=== PATIENT | female | born 1955 | race Caucasian/White ===

== ENCOUNTER 2017-07-18 18:04 | Emergency (ER) | payer OTHER ==
[~2017-07-18] VITALS: Ht 165.1 cm; Wt 119.8 kg
[~2017-07-18 18:04] MED LIST: ALPR1 PO; ASPI325EC; ASPI81CH PO; Advil200 M1 PO; Augmentin 875-1 EACH PO; Bystolic2.5 MG PO; CALCA400CH PO; CHOL10002 PO; COLON HEALTH PROBIOT PO; Colace100 MG PO; DOC250 PO; FLUO10; GLUC500 PO; HYDMOR2 PO; Hair, Skin & N1 EACH PO; Hydrocodone-Ap1 EA23 PO; IBUP800 PO; LEVSOD125 PO; LISI20 PO; METO25ER PO; MULT50FEL PO; Multivitamin W1 EAC5 PO; NEBI5 PO; NITR.4SL SL; NITR.6SL SL; Norco 5-325 Ta1 EACH PO; OSTEO BI-FLEX1 EAC2 PO; OSTEO BI-FLEX1 EAC3; OXYACE5T; Omeprazole20 M1 PO; PROM25 PO; PSEU120ER PO; Prilosec Otc20 MG PO; Prilosec20 MG PO; Prozac20 MG PO; SIMV10 PO; TELM40/12.; ZANAX
[2017-07-18] MEDS ORDERED: Toprol Xl25 MG (18:31)
[2017-07-18] MEDS ORDERED: ATOR80 (18:31)
[2017-07-18 19:04] LABS: Source, Urine Clean Catch
[2017-07-18 19:05] LABS: BASOPHILS ABSOLUTE AUTO 0.07 K/mm3 (0.00-0.23); BASOPHILS PERCENT AUTO 1 % (0-2); EOSINOPHILS ABSOLUTE AUTO 0.38 K/mm3 (0.00-0.68); EOSINOPHILS PERCENT AUTO 4 % (0-6); Hemoglobin 12.8 g/dL (11.5-16.0); IMMATURE GRAN ABSOLUTE AUTO 0.01 K/mm3 (0.00-0.10); IMMATURE GRAN PERCENT AUTO 0 % (0-1); LYMPHOCYTES ABSOLUTE AUTO 2.56 K/mm3 (0.84-5.20); LYMPHOCYTES PERCENT AUTO 26 % (21-46); MONOCYTES PERCENT AUTO 6 % (4-13); Mean Corpuscular HGB 29.8 pg (26.0-34.0); Mean Corpuscular HGB Conc 32.8 g/dL (31.5-36.5); Mean Corpuscular Volume 91 fL (80-100); NEUTROPHILS ABSOLUTE AUTO 6.15 K/mm3 (1.96-9.15); NEUTROPHILS PERCENT AUTO 63 % (41-73); Platelet Count 118 K/mm3 (150-400); RDW Coefficient Variation 13.5 % (11.7-14.2); Red Blood Cell Count 4.29 M/mm3 (3.80-5.20); White Blood Cell Count 9.77 K/mm3 (4.00-11.30)
[2017-07-18 19:07] LABS: Appearance, Urine Clear (Clear); Bilirubin, Urine Neg (Neg); Blood, Urine Neg (Neg); Color, Urine Yellow (P-Yellow); Glucose Qualitative, Urine Neg (Neg); Ketones, Urine 3+ (Neg); Leukocyte Esterase, Urine 1+ (Neg); Nitrite, Urine Neg (Neg); Protein, Urine Neg (Neg); Urobilinogen, Urine NORM (Normal)
[2017-07-18 19:26] LABS: Alanine Aminotransfer (ALT/SGP 34 U/L (12-78); Albumin, Blood 3.8 g/dL (3.4-5.0); Albumin/Globulin Ratio 1.2 (0.8-1.8); Alk Phos 121 U/L (50-136); Anion Gap 9 mmol/L (6-16); Aspartate Aminotrans (AST/SGOT 29 U/L (12-37); Bilirubin, Total 0.4 mg/dL (0.1-1.0); Blood Urea Nitrogen 23 mg/dL (8-24); Bun/Creatinine Ratio 30.4 (12.0-20.0); CO2, Blood 23 mmol/L (21-32); Chloride, Blood 106 mmol/L (98-108); Creatinine, Blood 0.76 mg/dL (0.40-1.00); Globulin, Blood 3.1 g/dL (2.2-4.0); Glomerular Filtration Rate >60 (60-); Glucose, Blood 83 mg/dL (70-99); Potassium, Blood 3.8 mmol/L (3.5-5.5); Sodium, Blood 138 mmol/L (136-145); Total Protein, Blood 6.9 g/dL (6.4-8.2)
[2017-07-18 19:30] LABS: Bacteria Few /hpf; Red Blood Cells, Urine 0-2 /hpf (0-2); Squamous Epithelial Cells Few /hpf (Few)
[2017-07-18] MEDS ORDERED: Norco 5-325 Ta1 EACH PO (19:41)
== END 2017-07-18 19:50 | disposition home or self-care (01) ==
LOC: ER 18:04
PROVIDERS: Emergency Medicine
DX: K80.50 Calculus of bile duct without cholangitis or cholecystitis without obstruction (principal); I25.10 Atherosclerotic heart disease of native coronary artery without angina pectoris; I10 Essential (primary) hypertension; K21.9 Gastro-esophageal reflux disease without esophagitis; Z87.891 Personal history of nicotine dependence; Z79.899 Other long term (current) drug therapy; Z79.82 Long term (current) use of aspirin
CPT/HCPCS: 36415; 76705; 80053; 81001; 83690; 85025; 87086; 96374; 96375; 99284; J1885; J2405; J3010

== ENCOUNTER 2017-07-21 09:59 | Day surgery (SDC) | payer OTHER ==
[~2017-07-21] VITALS: Ht 165.1 cm; Wt 117.6 kg
[~2017-07-21 09:59] MED LIST changes: +ATOR80; +Toprol Xl25 MG
[2017-07-21] MEDS ORDERED: Nitrostat0.4 MG (11:00)
== END 2017-07-21 16:15 | disposition home or self-care (01) ==
LOC: ORSCSDS 09:59
PROVIDERS: Internal Medicine Gastroenterology
PROC: 0D758ZZ Dilation of Esophagus, Via Natural or Artificial Opening Endoscopic (ICD-10-PCS; principal; 2017-07-21 11:30)
PROC: 0DB58ZX Excision of Esophagus, Via Natural or Artificial Opening Endoscopic, Diagnostic (ICD-10-PCS; principal; 2017-07-21 11:30)
DX: R13.10 Dysphagia, unspecified (principal); K44.9 Diaphragmatic hernia without obstruction or gangrene; K29.80 Duodenitis without bleeding; K20.9 Esophagitis, unspecified; R10.11 Right upper quadrant pain; Z87.891 Personal history of nicotine dependence; E66.9 Obesity, unspecified; Z68.41 Body mass index [BMI] 40.0-44.9, adult; Z79.82 Long term (current) use of aspirin; Z79.899 Other long term (current) drug therapy
CPT/HCPCS: 87081; 88305; J7120

== ENCOUNTER 2017-08-06 08:12 | Day surgery (SDC) | payer OTHER ==
[~2017-08-06] VITALS: Ht 165.1 cm; Wt 116.6 kg
[~2017-08-06 08:12] MED LIST changes: +ACET325 PO; +ALPR.25 PO; -ATOR80; +ATOR80 PO; +GABA300 PO; +Milk Of Ma400 MG/5 M PO; +Nitrostat0.4 MG PO; +OMEPRAZOLE MAGN20 MG PO; -Toprol Xl25 MG; +Toprol Xl25 MG PO
== END 2017-08-06 12:45 | disposition home or self-care (01) ==
LOC: ORSCMMR 08:12 → ORD 09:45 → ORSCMMR 09:45
PROVIDERS: Surgery
PROC: 0FT44ZZ Resection of Gallbladder, Percutaneous Endoscopic Approach (ICD-10-PCS; principal; 2017-08-06 09:45)
DX: K80.11 Calculus of gallbladder with chronic cholecystitis with obstruction (principal); I10 Essential (primary) hypertension; I25.10 Atherosclerotic heart disease of native coronary artery without angina pectoris; I25.2 Old myocardial infarction; E03.9 Hypothyroidism, unspecified; E66.01 Morbid (severe) obesity due to excess calories; Z68.41 Body mass index [BMI] 40.0-44.9, adult; I25.5 Ischemic cardiomyopathy; K21.9 Gastro-esophageal reflux disease without esophagitis; Z79.82 Long term (current) use of aspirin; Z79.899 Other long term (current) drug therapy
CPT/HCPCS: 88304; J0690; J1100; J1885; J2250; J2405; J2710; J3010; J7030; J7120

== ENCOUNTER → 2017-08-27 | Outpatient (CLI) | payer OTHER | LOC: LAB SHORT 15:38 → LAB 15:38 | PROVIDERS: Obstetrics & Gynecology Gynecology | DX: Z12.72 Encounter for screening for malignant neoplasm of vagina (principal) | CPT/HCPCS: 87624; G0123 ==

== ENCOUNTER 2018-02-22 18:11 | Emergency (ER) | payer OTHER ==
[~2018-02-22] VITALS: Ht 165.1 cm; Wt 105.7 kg
[2018-02-22] MEDS ORDERED: CEPH500 PO (19:22)
== END 2018-02-22 19:30 | disposition home or self-care (01) ==
LOC: ER 18:11
DX: T81.40XA Infection following a procedure, unspecified, initial encounter (principal); L03.116 Cellulitis of left lower limb; Z88.2 Allergy status to sulfonamides; Z79.899 Other long term (current) drug therapy; Z79.82 Long term (current) use of aspirin; Z86.73 Personal history of transient ischemic attack (TIA), and cerebral infarction without residual deficits; Z87.891 Personal history of nicotine dependence
CPT/HCPCS: 99283

== ENCOUNTER → 2018-05-27 | Outpatient (CLI) | payer OTHER ==
[~2018-05-27] MED LIST changes: +CEPH500 PO
== END | disposition home or self-care (01) ==
LOC: LAB SHORT 10:07 → LAB 10:07
DX: L08.0 Pyoderma (principal)
CPT/HCPCS: 87070; 87205

== ENCOUNTER → 2018-07-16 | Outpatient (CLI) | payer OTHER | END | disposition home or self-care (01) | LOC: LAB 16:08 → LAB SHORT 16:08 | DX: L08.0 Pyoderma (principal) | CPT/HCPCS: 87070; 87205 ==

== ENCOUNTER 2018-09-12 14:46 | Emergency (ER) | payer OTHER ==
[~2018-09-12] VITALS: Ht 165.1 cm; Wt 104.3 kg
[2018-09-12] MEDS ORDERED: Diflucan100 MG PO (15:02)
== END 2018-09-12 15:08 | disposition home or self-care (01) ==
LOC: ER 14:46
DX: B37.3 Candidiasis of vulva and vagina (principal); L73.1 Pseudofolliculitis barbae
CPT/HCPCS: 99283

== ENCOUNTER → 2018-11-04 | Outpatient (CLI) | payer OTHER ==
[~2018-11-04] MED LIST changes: +Diflucan100 MG PO
[2018-11-06 16:06] LABS: HPV 16 Negative (Negative); HPV 18 Negative (Negative); HPV OTHER HR TYPES Negative (Negative)
== END | disposition home or self-care (01) ==
LOC: LAB SHORT 18:10 → LAB 18:10
PROVIDERS: Obstetrics & Gynecology Gynecology
DX: Z12.72 Encounter for screening for malignant neoplasm of vagina (principal); Z86.14 Personal history of Methicillin resistant Staphylococcus aureus infection
CPT/HCPCS: 87081; 87624; G0123

== ENCOUNTER → 2018-11-11 | Outpatient (CLI) | payer OTHER | END | disposition home or self-care (01) | LOC: LAB SHORT 15:24 → LAB 15:24 | DX: Z01.411 Encounter for gynecological examination (general) (routine) with abnormal findings (principal); Z86.14 Personal history of Methicillin resistant Staphylococcus aureus infection | CPT/HCPCS: 87081 ==

== ENCOUNTER 2019-08-20 13:02 | Day surgery (SDC) | payer OTHER ==
[~2019-08-20] VITALS: Ht 165.1 cm; Wt 117.8 kg
== END 2019-08-20 15:01 | disposition home or self-care (01) ==
LOC: ORSCSDS 13:02
PROVIDERS: Internal Medicine Gastroenterology
PROC: 0D758ZZ Dilation of Esophagus, Via Natural or Artificial Opening Endoscopic (ICD-10-PCS; principal; 2019-08-20 14:15)
PROC: 0DJ08ZZ Inspection of Upper Intestinal Tract, Via Natural or Artificial Opening Endoscopic (ICD-10-PCS; principal; 2019-08-20 14:15)
DX: R13.14 Dysphagia, pharyngoesophageal phase (principal); K44.9 Diaphragmatic hernia without obstruction or gangrene; K22.2 Esophageal obstruction; F32.9 Major depressive disorder, single episode, unspecified; E66.9 Obesity, unspecified; I10 Essential (primary) hypertension; Z68.41 Body mass index [BMI] 40.0-44.9, adult; Z87.891 Personal history of nicotine dependence; Z79.82 Long term (current) use of aspirin; Z79.899 Other long term (current) drug therapy
CPT/HCPCS: J2704; J7120

== ENCOUNTER 2019-12-31 09:26 | Emergency (ER) | payer OTHER ==
[~2019-12-31] VITALS: Ht 165.1 cm; Wt 120.2 kg
[~2019-12-31 09:26] MED LIST changes: +PREG150 PO
[2019-12-31] MEDS ORDERED: METOPROLOL SUCC25 MG PO (09:47)
[2019-12-31] MEDS ORDERED: Lisinopril-Hct1 EAC4 PO (09:47)
[2019-12-31 09:54] LABS: BASOPHILS ABSOLUTE AUTO 0.05 K/mm3 (0.00-0.23); BASOPHILS PERCENT AUTO 1 % (0-2); EOSINOPHILS ABSOLUTE AUTO 0.45 K/mm3 (0.00-0.68); EOSINOPHILS PERCENT AUTO 7 % (0-6); Hematocrit 38.2 % (33.0-51.0); IMMATURE GRAN ABSOLUTE AUTO 0.02 K/mm3 (0.00-0.10); IMMATURE GRAN PERCENT AUTO 0 % (0-1); LYMPHOCYTES ABSOLUTE AUTO 1.82 K/mm3 (0.84-5.20); LYMPHOCYTES PERCENT AUTO 29 % (21-46); MONOCYTES ABSOLUTE AUTO 0.43 K/mm3 (0.16-1.47); MONOCYTES PERCENT AUTO 7 % (4-13); Mean Corpuscular HGB 29.1 pg (26.0-34.0); Mean Corpuscular HGB Conc 31.4 g/dL (31.5-36.5); Mean Corpuscular Volume 93 fL (80-100); Mean Platelet Volume 11.7 fL (9.1-12.4); NEUTROPHILS ABSOLUTE AUTO 3.57 K/mm3 (1.96-9.15); NEUTROPHILS PERCENT AUTO 56 % (41-73); Platelet Count 152 K/mm3 (150-400); RDW Standard Deviation 47.8 fL (35.1-46.3); Red Blood Cell Count 4.12 M/mm3 (3.80-5.20); White Blood Cell Count 6.34 K/mm3 (4.00-11.30)
[2019-12-31 10:11] LABS: Alanine Aminotransfer (ALT/SGP 27 U/L (12-78); Albumin, Blood 3.1 g/dL (3.4-5.0); Alk Phos 126 U/L (50-136); Anion Gap 3 mmol/L (6-16); Aspartate Aminotrans (AST/SGOT 27 U/L (12-37); Bilirubin, Total 0.6 mg/dL (0.1-1.0); Blood Urea Nitrogen 15 mg/dL (8-24); Bun/Creatinine Ratio 19.6 (12.0-20.0); CO2, Blood 31 mmol/L (21-32); Calcium, Blood 8.8 mg/dL (8.5-10.1); Chloride, Blood 108 mmol/L (98-108); Creatinine, Blood 0.77 mg/dL (0.40-1.00); Globulin, Blood 3.1 g/dL (2.2-4.0); Glomerular Filtration Rate >60 (60-); Glucose, Blood 85 mg/dL (70-99); Potassium, Blood 4.1 mmol/L (3.5-5.5); Sodium, Blood 142 mmol/L (136-145); Total Protein, Blood 6.2 g/dL (6.4-8.2); Troponin I <0.015 ng/mL (0.000-0.040)
== END 2019-12-31 11:27 | disposition home or self-care (01) ==
LOC: ER 09:26
PROVIDERS: Emergency Medicine
DX: R07.9 Chest pain, unspecified (principal); R51.9 Headache, unspecified; I10 Essential (primary) hypertension; I25.10 Atherosclerotic heart disease of native coronary artery without angina pectoris; K21.9 Gastro-esophageal reflux disease without esophagitis; I25.810 Atherosclerosis of coronary artery bypass graft(s) without angina pectoris; Z79.82 Long term (current) use of aspirin; Z79.899 Other long term (current) drug therapy
CPT/HCPCS: 36415; 71046; 80053; 84484; 85025; 93005; 93010; 99285-25

== ENCOUNTER 2021-08-27 16:08 | Emergency (ER) | payer OTHER ==
[~2021-08-27] VITALS: Ht 165.1 cm; Wt 131.5 kg
[~2021-08-27 16:08] MED LIST changes: +Lisinopril-Hct1 EAC4 PO; +METOPROLOL SUCC25 MG PO
[2021-08-27 17:07] LABS: BASOPHILS ABSOLUTE AUTO 0.04 K/mm3 (0.00-0.23); BASOPHILS PERCENT AUTO 1 % (0-2); EOSINOPHILS ABSOLUTE AUTO 0.17 K/mm3 (0.00-0.68); EOSINOPHILS PERCENT AUTO 3 % (0-6); Hematocrit 41.3 % (33.0-51.0); Hemoglobin 13.7 g/dL (11.5-16.0); IMMATURE GRAN ABSOLUTE AUTO 0.02 K/mm3 (0.00-0.10); IMMATURE GRAN PERCENT AUTO 0 % (0-1); LYMPHOCYTES ABSOLUTE AUTO 1.13 K/mm3 (0.84-5.20); LYMPHOCYTES PERCENT AUTO 19 % (21-46); MONOCYTES ABSOLUTE AUTO 0.37 K/mm3 (0.16-1.47); MONOCYTES PERCENT AUTO 6 % (4-13); Mean Corpuscular HGB Conc 33.2 g/dL (31.5-36.5); Mean Corpuscular Volume 91 fL (80-100); Mean Platelet Volume 10.5 fL (9.1-12.4); NEUTROPHILS ABSOLUTE AUTO 4.12 K/mm3 (1.96-9.15); NEUTROPHILS PERCENT AUTO 71 % (41-73); Platelet Count 128 K/mm3 (150-400); RDW Coefficient Variation 14.6 % (11.7-14.2); RDW Standard Deviation 49.1 fL (35.1-46.3); Red Blood Cell Count 4.56 M/mm3 (3.80-5.20); White Blood Cell Count 5.85 K/mm3 (4.00-11.30)
[2021-08-27 17:24] LABS: Albumin, Blood 3.5 g/dL (3.4-5.0); Albumin/Globulin Ratio 0.9 (0.8-1.8); Bilirubin, Total 0.4 mg/dL (0.1-1.0); Bun/Creatinine Ratio 17.9 (12.0-20.0); Calcium, Blood 9.2 mg/dL (8.5-10.1); Creatinine, Blood 0.67 mg/dL (0.40-1.00); Globulin, Blood 3.7 g/dL (2.2-4.0); Potassium, Blood 3.8 mmol/L (3.5-5.5); Total Protein, Blood 7.2 g/dL (6.4-8.2)
== END 2021-08-27 20:25 | disposition home or self-care (01) ==
LOC: ER 16:08
PROVIDERS: Physician Assistant
DX: J06.9 Acute upper respiratory infection, unspecified (principal); R06.2 Wheezing; I25.10 Atherosclerotic heart disease of native coronary artery without angina pectoris; I10 Essential (primary) hypertension; K21.9 Gastro-esophageal reflux disease without esophagitis; Z87.891 Personal history of nicotine dependence; Z88.2 Allergy status to sulfonamides; Z79.899 Other long term (current) drug therapy
CPT/HCPCS: 71046; 80053; 85025; A9270

== ENCOUNTER 2021-09-29 11:48 | Emergency (ER) | payer OTHER ==
[~2021-09-29] VITALS: Ht 170.2 cm; Wt 136.1 kg
[2021-09-29] MEDS ORDERED: HYDR1TAB94 PO (15:20)
== END 2021-09-29 16:10 | disposition home or self-care (01) ==
LOC: ER 11:48
DX: M25.512 Pain in left shoulder (principal); M54.2 Cervicalgia; M54.50 Low back pain, unspecified; R07.9 Chest pain, unspecified; R51.9 Headache, unspecified; W01.0XXA Fall on same level from slipping, tripping and stumbling without subsequent striking against object, initial encounter; I10 Essential (primary) hypertension; I25.10 Atherosclerotic heart disease of native coronary artery without angina pectoris; K21.9 Gastro-esophageal reflux disease without esophagitis; Z79.899 Other long term (current) drug therapy; Z88.2 Allergy status to sulfonamides
CPT/HCPCS: 70450; 71046; 72125; 72131; 73030; 93005; 93010; A9270; J3010

== ENCOUNTER → 2022-04-05 | Outpatient (CLI) | payer OTHER ==
[~2022-04-05] MED LIST changes: +HYDR1TAB94 PO
== END | disposition home or self-care (01) ==
LOC: LAB SHORT 13:08 → LAB 13:08
DX: R30.0 Dysuria (principal)
CPT/HCPCS: 87086

== ENCOUNTER → 2022-07-16 | Outpatient (CLI) | payer OTHER ==
[2022-07-16 19:47] LABS: BASOPHILS ABSOLUTE AUTO 0.06 K/mm3 (0.00-0.23); BASOPHILS PERCENT AUTO 1 % (0-2); EOSINOPHILS ABSOLUTE AUTO 0.44 K/mm3 (0.00-0.68); EOSINOPHILS PERCENT AUTO 6 % (0-6); Hematocrit 36.4 % (33.0-51.0); Hemoglobin 11.6 g/dL (11.5-16.0); IMMATURE GRAN ABSOLUTE AUTO 0.01 K/mm3 (0.00-0.10); IMMATURE GRAN PERCENT AUTO 0 % (0-1); LYMPHOCYTES ABSOLUTE AUTO 2.52 K/mm3 (0.84-5.20); LYMPHOCYTES PERCENT AUTO 35 % (21-46); MONOCYTES ABSOLUTE AUTO 0.48 K/mm3 (0.16-1.47); MONOCYTES PERCENT AUTO 7 % (4-13); Mean Corpuscular HGB 29.5 pg (26.0-34.0); Mean Corpuscular HGB Conc 31.9 g/dL (31.5-36.5); Mean Corpuscular Volume 93 fL (80-100); Mean Platelet Volume 11.2 fL (9.1-12.4); NEUTROPHILS PERCENT AUTO 51 % (41-73); Platelet Count 176 K/mm3 (150-400); RDW Coefficient Variation 14.6 % (11.7-14.2); RDW Standard Deviation 49.9 fL (35.1-46.3); Red Blood Cell Count 3.93 M/mm3 (3.80-5.20); White Blood Cell Count 7.11 K/mm3 (4.00-11.30)
[2022-07-16 20:14] LABS: Albumin, Blood 3.6 g/dL (3.4-5.0); Albumin/Globulin Ratio 1.2 (0.8-1.8); Bilirubin, Total 0.4 mg/dL (0.1-1.0); Creatinine, Blood 0.77 mg/dL (0.40-1.00); Free Thyroxine 0.92 ng/dL (0.70-1.60); Globulin, Blood 2.9 g/dL (2.2-4.0); Potassium, Blood 3.8 mmol/L (3.5-5.5); Thyroid Stimulating Hormone 4.76 uIU/mL (0.360-4.800); Total Protein, Blood 6.5 g/dL (6.4-8.2)
== END | disposition home or self-care (01) ==
LOC: LAB SHORT 15:36 → LAB 15:36
PROVIDERS: Nurse Practitioner Family
DX: E03.9 Hypothyroidism, unspecified (principal); I10 Essential (primary) hypertension; R73.03 Prediabetes
CPT/HCPCS: 80053; 83036; 84439; 84443; 85025

== ENCOUNTER 2023-03-11 11:59 | Emergency (ER) | payer OTHER ==
[~2023-03-11] VITALS: Ht 165.1 cm; Wt 131.5 kg
[2023-03-11 13:09] LABS: Influenza A, PCR NEGATIVE (NEGATIVE); Influenza B, PCR NEGATIVE (NEGATIVE); Resp Syncytial Virus, PCR NEGATIVE (NEGATIVE); SARS-Cov-2 (COVID-19) PCR, MMC NEGATIVE (NEGATIVE)
[2023-03-11] MEDS ORDERED: XARELTO20 MG (14:03)
[2023-03-11] MEDS ORDERED: YUVAFEM10 MCG VG (14:03)
[2023-03-11] MEDS ORDERED: ENTRESTO 49 MG1 EAC7 PO (14:04)
[2023-03-11] MEDS ORDERED: PRAMIPEXOLE D0.25 M1 PO (14:04)
[2023-03-11] MEDS ORDERED: METO50ER PO (14:04)
[2023-03-11] MEDS ORDERED: DULOXETINE HCL60 M1 PO (14:04)
[2023-03-11] MEDS ORDERED: TRAM50 (14:04)
[2023-03-11] MEDS ORDERED: TORS10 PO (14:05)
[2023-03-11] MEDS ORDERED: POTA10T PO (14:05)
[2023-03-11] MEDS ORDERED: NEOPOLHCSU RIGHTEAR (14:11)
[2023-03-11] MEDS ORDERED: AMOX-CLAV 875-1 EAC4 PO (14:11)
[2023-03-11 16:15] VITALS: BP 104/56
== END 2023-03-11 16:22 | disposition home or self-care (01) ==
LOC: ER 11:59
PROVIDERS: Physician Assistant
DX: J20.9 Acute bronchitis, unspecified (principal); H60.91 Unspecified otitis externa, right ear; I10 Essential (primary) hypertension; I25.10 Atherosclerotic heart disease of native coronary artery without angina pectoris; E78.5 Hyperlipidemia, unspecified; E03.9 Hypothyroidism, unspecified; K21.9 Gastro-esophageal reflux disease without esophagitis; Z88.2 Allergy status to sulfonamides; Z79.899 Other long term (current) drug therapy; Z79.82 Long term (current) use of aspirin; Z79.890 Hormone replacement therapy; Z20.822 Contact with and (suspected) exposure to COVID-19
CPT/HCPCS: 0241U; 71046; 99284-25

== ENCOUNTER 2023-03-30 14:27 | Emergency (ER) | payer OTHER ==
[~2023-03-30] VITALS: Ht 162.6 cm; Wt 131.5 kg
[~2023-03-30 14:27] MED LIST changes: +AMOX-CLAV 875-1 EAC4 PO; +DULOXETINE HCL60 M1 PO; +ENTRESTO 49 MG1 EAC7 PO; +METO50ER PO; +NEOPOLHCSU RIGHTEAR; +POTA10T PO; +PRAMIPEXOLE D0.25 M1 PO; +TORS10 PO; +TRAM50; +XARELTO20 MG; +YUVAFEM10 MCG VG
[2023-03-30 14:36] VITALS: BP 127/68
[2023-03-30] MEDS ORDERED: Cyclobenzaprine5 MG PO (16:51)
== END 2023-03-30 17:00 | disposition home or self-care (01) ==
LOC: ER 14:27
DX: S39.012A Strain of muscle, fascia and tendon of lower back, initial encounter (principal); I50.9 Heart failure, unspecified; I25.10 Atherosclerotic heart disease of native coronary artery without angina pectoris; Z95.1 Presence of aortocoronary bypass graft; Z86.73 Personal history of transient ischemic attack (TIA), and cerebral infarction without residual deficits; Z79.82 Long term (current) use of aspirin; Z79.01 Long term (current) use of anticoagulants; Z79.899 Other long term (current) drug therapy; Z88.2 Allergy status to sulfonamides
CPT/HCPCS: 72100; 99283-25; A9270

== ENCOUNTER → 2023-12-23 | Outpatient (CLI) | payer OTHER ==
[~2023-12-23] MED LIST changes: -CHOL10002 PO; +Cyclobenzaprine5 MG PO; +JARDIANCE10 MG PO; -LEVSOD125 PO; +LEVSOD150 PO; +VITAMIN D5000 UNIT PO
[2023-12-23 15:28] LABS: Source, Urine Clean Catch
[2023-12-23 17:14] LABS: Appearance, Urine Clear (Clear); Bilirubin, Urine Neg (Neg); Blood, Urine Neg (Neg); Color, Urine Yellow (P-Yellow); Glucose Qualitative, Urine 4+ (Neg); Ketones, Urine Neg (Neg); Leukocyte Esterase, Urine Neg (Neg); Nitrite, Urine Neg (Neg); Protein, Urine Neg (Neg); Urobilinogen, Urine NORM (Normal)
== END | disposition home or self-care (01) ==
LOC: LAB 15:27 → LAB SHORT 15:27
PROVIDERS: Nurse Practitioner Family
DX: R39.9 Unspecified symptoms and signs involving the genitourinary system (principal)
CPT/HCPCS: 81003

== ENCOUNTER → 2024-03-09 | Outpatient (CLI) | payer OTHER ==
[2024-03-10 15:08] LABS: Stool Occult Bld Immuno 1 Negative (NEGATIVE)
== END ==
LOC: LAB 14:56 → LAB SHORT 14:56 → LAB FUT 03-08 13:35
PROVIDERS: Nurse Practitioner Family
DX: D50.9 Iron deficiency anemia, unspecified (principal); K21.9 Gastro-esophageal reflux disease without esophagitis
CPT/HCPCS: G0328

== ENCOUNTER 2024-05-25 07:00 | Day surgery (SDC) | payer OTHER ==
[~2024-05-25] VITALS: Ht 160 cm; Wt 126.3 kg
[~2024-05-25 07:00] MED LIST changes: +Acerola C500 MG PO; +B COMPLEX FORM0.4 MG PO; +CLINDAMYCIN PHO40 G1; +DOCU100 PO; +ENTRESTO 49 MG1 EACH PO; +Lactated Ringer's 1,000 ML IV SCH; +MULTI-VITAMIN1 EAC2 PO; +PANT40 PO; -PRAMIPEXOLE D0.25 M1 PO; +PRAMIPEXOLE0.125 M1 PO; +THERA-D2000 UNIT PO; -VITAMIN D5000 UNIT PO; -XARELTO20 MG; +XARELTO20 MG PO; +YUVAFEM10 MCG VAG
[2024-05-25 07:38] VITALS: BP 143/71
[2024-05-25] MEDS ORDERED: CLIN1TS TOP (07:45)
[2024-05-25] MEDS ORDERED: MIRAPEX PO (07:46)
--- NOTE | 2024-05-25 07:57 | NUR ---
Wheelchaired into Day Surgery History, Chart, Medications and Allergies reviewed before start of procedure. Pre-Op teaching done. Pt verbalizes understanding. Patient States Post-Procedure ride home has been arranged.
[2024-05-25] MEDS ORDERED: propofoL 60 ML IV ONE (08:00)
[2024-05-25] MEDS ORDERED: Benzocaine Oral Spray 0.5ML UD ONE (08:13)
--- NOTE | 2024-05-25 08:30 | NUR ---
05/25/24 [address] STOKES; SEE ANESTHESIA RECORDS.
[2024-05-25 08:52] VITALS: BP 119/70
[2024-05-25 09:00] VITALS: BP 121/69
[2024-05-25 09:15] VITALS: BP 124/68
--- NOTE | 2024-05-25 09:26 | NUR ---
Patient up to Ambulate independently. Gait steady. Discharged via wheelchair to private car for ride home WITH SPOUSE. Discharge instructions reviewed with patient. Patient verbalizes understanding. Copy given to patient to take home.
== END 2024-05-25 23:09 | disposition home or self-care (01) ==
LOC: ORSCMMR 07:00 → ORD 08:30 → ORSCMMR 23:09
PROVIDERS: Internal Medicine Gastroenterology
PROC: 0DJD8ZZ Inspection of Lower Intestinal Tract, Via Natural or Artificial Opening Endoscopic (ICD-10-PCS; principal; 2024-05-25 08:30)
PROC: 0DB78ZX Excision of Stomach, Pylorus, Via Natural or Artificial Opening Endoscopic, Diagnostic (ICD-10-PCS; principal; 2024-05-25 08:30)
PROC: 0DB98ZX Excision of Duodenum, Via Natural or Artificial Opening Endoscopic, Diagnostic (ICD-10-PCS; principal; 2024-05-25 08:30)
DX: D50.0 Iron deficiency anemia secondary to blood loss (chronic) (principal); K44.9 Diaphragmatic hernia without obstruction or gangrene; K64.8 Other hemorrhoids; I10 Essential (primary) hypertension; E11.9 Type 2 diabetes mellitus without complications; E78.5 Hyperlipidemia, unspecified; I25.10 Atherosclerotic heart disease of native coronary artery without angina pectoris; Z87.891 Personal history of nicotine dependence; E03.9 Hypothyroidism, unspecified; E66.01 Morbid (severe) obesity due to excess calories; Z68.42 Body mass index [BMI] 45.0-49.9, adult; Z79.84 Long term (current) use of oral hypoglycemic drugs; Z79.899 Other long term (current) drug therapy; Z79.82 Long term (current) use of aspirin; Z79.01 Long term (current) use of anticoagulants
CPT/HCPCS: 88305; 88342; A9270; J2704; J7120

== ENCOUNTER → 2024-06-22 | Outpatient (CLI) | payer OTHER ==
[~2024-06-22] MED LIST changes: +CLIN1TS TOP; -Lactated Ringer's 1,000 ML IV SCH; +MIRAPEX PO
[2024-06-23 19:53] LABS: Free Thyroxine 1.52 ng/dL (0.70-1.60); Percent Saturation 36.2 % (15.0-50.0)
== END ==
LOC: LAB SHORT 15:38 → LAB 15:38 → LAB SHORT 06-23 15:38
PROVIDERS: Internal Medicine Hematology & Oncology
DX: E03.9 Hypothyroidism, unspecified (principal); E53.8 Deficiency of other specified B group vitamins; E61.1 Iron deficiency
CPT/HCPCS: 82607; 82728; 83540; 83550; 84439

== ENCOUNTER 2024-09-06 11:58 | Emergency (ER) | payer OTHER ==
[~2024-09-06] VITALS: Ht 165.1 cm; Wt 127.0 kg
[2024-09-06 12:09] VITALS: BP 132/64
[2024-09-06 13:56] LABS: BASOPHILS ABSOLUTE AUTO 0.07 K/mm3 (0.00-0.23); BASOPHILS PERCENT AUTO 1 % (0-2); EOSINOPHILS ABSOLUTE AUTO 0.34 K/mm3 (0.00-0.68); EOSINOPHILS PERCENT AUTO 6 % (0-6); Hematocrit 38.9 % (33.0-51.0); Hemoglobin 12.7 g/dL (11.5-16.0); IMMATURE GRAN ABSOLUTE AUTO 0.01 K/mm3 (0.00-0.10); IMMATURE GRAN PERCENT AUTO 0 % (0-1); LYMPHOCYTES ABSOLUTE AUTO 1.87 K/mm3 (0.84-5.20); LYMPHOCYTES PERCENT AUTO 32 % (21-46); MONOCYTES ABSOLUTE AUTO 0.43 K/mm3 (0.16-1.47); MONOCYTES PERCENT AUTO 7 % (4-13); Mean Corpuscular HGB 31.1 pg (26.0-34.0); Mean Corpuscular HGB Conc 32.6 g/dL (31.5-36.5); Mean Corpuscular Volume 95 fL (80-100); Mean Platelet Volume 10.4 fL (9.1-12.4); NEUTROPHILS ABSOLUTE AUTO 3.06 K/mm3 (1.96-9.15); NEUTROPHILS PERCENT AUTO 53 % (41-73); Platelet Count 152 K/mm3 (150-400); RDW Standard Deviation 52.6 fL (35.1-46.3); Red Blood Cell Count 4.08 M/mm3 (3.80-5.20); White Blood Cell Count 5.78 K/mm3 (4.00-11.30)
[2024-09-06 14:17] LABS: Albumin, Blood 3.6 g/dL (3.4-5.0); Albumin/Globulin Ratio 1.2 (0.8-1.8); Bilirubin, Total 0.6 mg/dL (0.1-1.0); Bun/Creatinine Ratio 16.7 (12.0-20.0); Calcium, Blood 8.9 mg/dL (8.5-10.1); Creatinine, Blood 0.9 mg/dL (0.40-1.00); Globulin, Blood 2.9 g/dL (2.2-4.0); Total Protein, Blood 6.5 g/dL (6.4-8.2)
== END 2024-09-06 14:37 | disposition home or self-care (01) ==
LOC: ER 11:58
PROVIDERS: Student in an Organized Health Care Education/Training Program
DX: R60.0 Localized edema (principal); I25.10 Atherosclerotic heart disease of native coronary artery without angina pectoris; I10 Essential (primary) hypertension; K21.9 Gastro-esophageal reflux disease without esophagitis; E03.9 Hypothyroidism, unspecified; E78.5 Hyperlipidemia, unspecified; Z88.2 Allergy status to sulfonamides; Z79.82 Long term (current) use of aspirin; Z79.01 Long term (current) use of anticoagulants; Z79.899 Other long term (current) drug therapy
CPT/HCPCS: 80053; 85025; 99283

== ENCOUNTER → 2024-11-18 | Outpatient (CLI) | payer OTHER ==
[2024-11-18 16:02] LABS: Ferritin, Serum 21.0 ng/mL (8-252); Total Iron Binding Capacity 350.0 ug/dL (250-450)
== END ==
LOC: LAB SHORT 13:16 → LAB 13:16
PROVIDERS: Internal Medicine Hematology & Oncology
DX: E61.1 Iron deficiency (principal)
CPT/HCPCS: 82728; 83540; 83550